=== PATIENT | male | born 1950 | race African-American/Black ===

== ENCOUNTER 2016-08-21 14:35 | Emergency (ER) | payer OTHER, MEDICARE ==
[~2016-08-21 14:35] MED LIST: ASPIRIN81 M2 PO; COUMADIN5 MG; COUMADIN7.5 MG PO; EXFORGE 5-3201 EACH; GLUCOPHAGE500 M1 PO; HCTZ PO; HYDREA500 MG; HYDROCODON-ACE1 EAC7 PO; HYDROXYUREA500 M1 PO; METFORMIN HCL500 M1; MULTI VITAMIN1 EACH PO
[2016-08-21 14:46] LABS: INFLUENZA A NEG (NEG); INFLUENZA B NEG (NEG)
== END 2016-08-21 15:20 | disposition home or self-care (01) ==
LOC: SED 14:35
PROVIDERS: Physician Assistant
DX: J06.9 Acute upper respiratory infection, unspecified (principal); E11.9 Type 2 diabetes mellitus without complications; I10 Essential (primary) hypertension; Z79.899 Other long term (current) drug therapy; Z79.84 Long term (current) use of oral hypoglycemic drugs
CPT/HCPCS: 87651; 87804; 99282